=== PATIENT | male | born 1950 | race Caucasian/White ===

== ENCOUNTER → 2016-06-01 | Outpatient (CLI) | payer OTHER ==
--- NOTE | 2016-06-01 16:38 | MRI ---
EXAM DESCRIPTION: Brain MRI. CLINICAL HISTORY: Dizziness COMPARISON: None. TECHNIQUE: Multiplanar, multisequence MR images were acquired without IV contrast. FINDINGS: The midline structures on today's exam are unremarkable. Minimal periventricular white matter disease noted with a few T2 hyperintensities seen. Gradient sequences reveal no evidence of old intracranial hemorrhage. No intracranial mass effect, hydrocephalus, midline shift, hemorrhage, extra-axial fluid collection, abnormal vascular flow void, or restricted diffusion is seen. Calvarial signal is intact. Minimal bilateral maxillary sinus, sphenoid sinuses and ethmoid air cell mucosal thickening. Orbits and globes are unremarkable. IMPRESSION: Today's exam demonstrates only minimal age-appropriate periventricular white matter disease. Mucosal thickening within the paranasal sinuses which can be seen in setting of sinusitis, if the patient is symptoms support this finding. No acute findings on today's study. Electronically signed by: Peewee He MD 06/01/2016 16:37
== END | disposition home or self-care (01) ==
LOC: MRI 13:51
PROVIDERS: ATTEND Family Medicine
DX: R42 Dizziness and giddiness (principal)

== ENCOUNTER → 2017-07-24 | Outpatient (CLI) | payer OTHER | LOC: GMAJ 11:13 | PROVIDERS: ATTEND Family Medicine | DX: Z12.5 Encounter for screening for malignant neoplasm of prostate (principal) ==

== ENCOUNTER → 2018-01-29 | Outpatient (CLI) | payer OTHER ==
--- NOTE | 2018-01-29 13:39 | US ---
Procedure: US LOWER EXTREMITY ARTERIES BILATERAL Exam Date: 01/29/2018 Ordering Provider: ANGÉLICA RICHTER Clinical Indication: PVD Comparison: None Technique: Arterial duplex Doppler ultrasound was obtained over both lower extremities. This includes grayscale, spectral Doppler, and color Doppler. Carton Wrapper images recorded. FINDINGS: Right: Grayscale imaging demonstrates mild atherosclerotic plaque.. Waveforms are biphasic throughout. Peak systolic velocities (cm/sec) are as follows: DIRECTOR MARKET INTELLIGENCE: 91 Proximal SFA: 69 Mid SFA: 58 Distal SFA: 79 Popliteal: 52 Peroneal: 52 EVENTS ADMINISTRATIVE ASSISTANT: 46 Dorsalis pedis: 0 Left: Grayscale imaging demonstrates mild atherosclerotic plaque. Waveforms are triphasic in the common femoral and popliteal arteries and biphasic in the superficial femoral, peroneal and posterior tibial arteries. Peak systolic velocities (cm/sec) are as follows: DIRECTOR MARKET INTELLIGENCE: 92 Proximal SFA: 81 Mid SFA: 74 Distal SFA: 82 Popliteal: 52 Peroneal: 60 EVENTS ADMINISTRATIVE ASSISTANT: 73 Dorsalis pedis: 0 IMPRESSION: 1. There is no flow identified in the bilateral dorsalis pedis arteries. 2. Otherwise, no hemodynamically significant stenosis in either lower extremity. Electronically signed by: Harshad Ordonez MD 01/29/2018 1:37 PM CDT
== END ==
LOC: US 08:11
PROVIDERS: ATTEND Family Medicine
DX: I73.89 Other specified peripheral vascular diseases (principal); I70.211 Atherosclerosis of native arteries of extremities with intermittent claudication, right leg

== ENCOUNTER → 2019-01-27 | Outpatient (CLI) | payer OTHER | LOC: NM 08:28 | PROVIDERS: ATTEND Family Medicine | DX: I70.203 Unspecified atherosclerosis of native arteries of extremities, bilateral legs (principal) ==

== ENCOUNTER → 2020-03-09 | Outpatient (CLI) | payer OTHER, MEDICARE | LOC: GMAJ 10:43 | PROVIDERS: ATTEND Family Medicine | DX: Z12.5 Encounter for screening for malignant neoplasm of prostate (principal); I10 Essential (primary) hypertension; E78.2 Mixed hyperlipidemia ==

== ENCOUNTER 2020-06-05 10:35 | Emergency (ER) | payer MEDICARE, OTHER ==
--- NOTE | 2020-06-05 10:40 | ED.PDOC ---
History of Present Illness - General Stated Complaint: Cough, dyspnea, weakness Time Seen by Provider: 06/05/20 10:40 Additional Information: Patient seen in this emergency department 3 days ago with negative Covid test. - History of Present Illness Initial Comments: Patient complains of nonproductive cough, dyspnea, fever to 103 degrees, chills, weakness, loss of appetite for the last week. He was seen in this emergency de partment 3 days ago and had a negative rapid Covid test. He was given a prescription of azithromycin and Medrol Dosepak. Patient denies relief of symptoms. Timing/Duration: 1 week Severity: mild Improving Factors: nothing Worsening Factors: nothing Allergies/Adverse Reactions: Allergies NO KNOWN ALLERGY Allergy (Verified 06/05/20 11:11) Review of Systems - Review of Systems Constitutional: States: see HPI EENTM: States: other - Denies sore throat. Was told that he had a questionably positive strep test on last visit. Respiratory: States: see HPI, cough, short of breath Cardiology: States: chest pain - With coughing Gastrointestinal/Abdominal: States: no symptoms reported Genitourinary: States: no symptoms reported Musculoskeletal: States: no symptoms reported Skin: States: no symptoms reported Neurological: States: no symptoms reported Endocrine: States: no symptoms reported Hematologic/Lymphatic: States: no symptoms reported Family Medical History - Family History Mother Family History: Unknown Living Status: Physical Exam - Physical Exam General Appearance: Alert, Comfortable, Other - Patient was supine without obvious distress when first seen. 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 He remains comfortable in a supine position. SaO2 91 to 94% at time of last examination. 06/05/20 12:49 Medical decision makin-year-old male with a history of COPD who presents with symptoms suggestive of COVID-19 infection. Patient does not have any dyspnea wheezing or significant hypoxemia here in the emergency department. To COVID-19 test in the last 3 days have been negative. Patient does not appear to have an acute exacerbation of his COPD. There is no pneumonia or respiratory distress. Symptoms reported are most likely due to COVID-19 infection with false negative testing. Patient is suitable for outpatient management. - Results/Orders Results/Orders: Single view chest x-ray: Chronic changes noted but no acute changes or in filtrates. Rapid nasal swab Covid testing negative. Departure - Departure Clinical Impression: Dyspnea, COPD (chronic obstructive pulmonary disease), Suspected COVID-19 virus infection Time of Disposition: 11:33 Disposition: Discharge to Home or Self Care Condition: Good Departure Forms: ED Discharge - Pt. Copy, Patient Portal Self Enrollment Instructions: Chronic Obstructive Pulmonary Disease (COPD) (DC), Coronavirus Disease 2019 (COVID-19) (DC) Diet: resume usual diet Referrals: Marco Shields MD [Primary Care Provider] - 1-2 Weeks Additional Instructions: You have suspected COVID-19. If you develop acutely worsening shortness of breath return to the emergency department. Even though your tests have been negative so far you should consider yourself is positive for Covid based on your symptoms. You should isolate yourself from all others for at least 4 days until all of your current symptoms have resolved. Continue your current medications. Use [id number] Robitussin-DM for cough.
--- NOTE | 2020-06-05 11:08 | RAD ---
EXAM: XR Chest, 1 View CLINICAL HISTORY: Cough and dyspnea TECHNIQUE: Frontal view of the chest. COMPARISON: No relevant prior studies available. FINDINGS: Lungs: No consolidation. Symmetrical vascular pattern. Pleural space: No pneumothorax. No pleural effusion. Heart: Large cardiac shadow. Mediastinum: No abnormality noted. Bones/joints: No osseous destruction or sclerosis noted. IMPRESSION: Chronic changes as above. No acute disease. Electronically signed by: Janine Ojeda MD 06/05/2020 11:06 AM [facility]
[2020-06-05 11:54] VITALS: BP 127/68; TEMP 99.1; O2SAT 91
== END 2020-06-05 11:45 | disposition home or self-care (01) ==
LOC: ER 10:35
DX: J44.9 Chronic obstructive pulmonary disease, unspecified (principal); Z20.822 Contact with and (suspected) exposure to COVID-19

== ENCOUNTER 2020-06-07 17:03 | Emergency (ER) | payer MEDICARE, OTHER ==
--- NOTE | 2020-06-07 17:42 | ED.PDOC ---
History of Present Illness - General Chief Complaint: General Stated Complaint: General weakness, dizzy Time Seen by Provider: 06/07/20 17:06 Source: patient Exam Limitations: no limitations Additional Information: The patient states that he was sent by his PCP to come get a Ct Angio Chest. States that he has been told he is Covid Negative . He had lab work done at his primary care physician's office today and his D-dimer was elevated to descending to the ED to come get a CT angio.He is currently on antibiotics started by his primary care is for pneumonia - History of Present Illness Timing/Duration: unsure Severity: moderate Improving Factors: nothing Worsening Factors: nothing Associated Symptoms: denies symptoms, cough, shortness of breath Allergies/Adverse Reactions: Allergies NO KNOWN ALLERGY Allergy (Verified 06/07/20 17:15) Review of Systems - Review of Systems Constitutional: Denies: chills, fever EENTM: Denies: blurred vision, tearing, nose pain, nose congestion Respiratory: States: cough, short of breath Cardiology: Denies: chest pain, palpitations, syncope Gastrointestinal/Abdominal: Denies: abdominal pain, diarrhea, nausea, vomiting Genitourinary: Denies: discharge, frequency, hematuria Musculoskeletal: Denies: back pain, gout, muscle pain, muscle stiffness, other Skin: Denies: change in color, dryness, lesions, rash, other Neurological: Denies: depressed, emotional problems, headache, paresthesia, pre- existing deficit, seizure Endocrine: Denies: flushing, intolerance to cold, intolerance to heat, increased urine, unexplained weight gain, unexplained weight loss Hematologic/Lymphatic: Denies: anemia, easy bleeding, easy bruising Past Medical History (General) - Patient Medical History Hx Stroke: No Hx of COPD: Yes Hx Cardiac Disorders: No Hx Congestive Heart Failure: Yes Hx Hypertension: Yes Hx Diabetes: No Hx Gastroesophageal Reflux: No Hx Cancer: No - Vaccination History Hx Influenza Vaccination: Yes Hx Pneumococcal Vaccination: Yes - Social History Hx Tobacco Use: Yes Hx Chewing Tobacco Use: Yes Hx Alcohol Use: Yes Hx Substance Use: No Hx Substance Use Treatment: No Hx Depression: No - Female History Patient : No Family Medical History - Family History Mother Family History: Unknown Living Status: Physical Exam - Physical Exam General Appearance: Alert Eye Exam: bilateral normal Ears, Nose, Throat: hearing grossly normal, normal ENT inspection Neck: non-tender, full range of motion, supple, normal inspection Respiratory: chest non-tender, lungs clear, normal breath sounds, no respiratory distress, no accessory muscle use Cardiovascular/Chest: normal peripheral pulses, regular rate, rhythm, no edema, no gallop, no JVD Peripheral Pulses: radial,right: 2+, radial,left: 2+ Gastrointestinal/Abdominal: normal bowel sounds, non tender, soft, no organomegaly, no pulsatile mass Rectal Exam: normal rectal tone Back Exam: normal inspection, no CVA tenderness, no vertebral tenderness Extremity: normal range of motion, non-tender, normal inspection 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 Review of lab work from the My care physician's office on elevated D-dimer. The patient states that he has pneumonia and is currently being treated for it. His Covid is negative. CT angios negative. CT does show pneumonia the patient discharged home to continue his antibiotic course for pneumonia. Patient advised on return precautions and follow-up instructions he verbalized understanding Patient's oxygen saturations are 95 and above throughout his ED stay. No tachypnea. He does state that he has shortness of breath but states that he is chronically short of breath and this is not any different from shortness of breath from COPD. EXAM DESCRIPTION: CTA Chest CLINICAL HISTORY: 70 years Male elevated ddimer COMPARISON: None TECHNIQUE: Images were obtained in axial, sagittal, and coronal planes. Intravenous contrast was administered. 3-D MIP imaging was performed. This exam was performed according to our departmental dose- optimization program which includes use of Automated Exposure Control, adjustmen t of the mA and/or kV according to patient size and/or use of iterative reconstruction technique. FINDINGS: No filling defects pulmonary arteries bilaterally. No aortic dissection or dilatation. No pericardial effusion. Enlarged heart. Trace bilateral pleural effusions. 2.3 cm right hilar lymph node. 2.1 cm left hilar lymph node. 1.7 cm lymph node aortopulmonary window. Extensive ill-defined airspace opacities lung [place] ri[place] bilaterally with predominant involvement lower lobes. No lung parenchymal infiltrates seen. No acute osseous abnormality. Decreased attenuation involving the liver likely fatty change. Spleen is enlarged measuring 13.6 cm in greatest dimension. IMPRESSION: No evidence for pulmonary embolus. No aortic dissection or dilatation. Extensive bilateral infiltrates. The findings are consistent with but not specific for atypical pneumonia including viral infection. Bilateral hilar and mediastinal adenopathy. Enlarged heart. Fatty change involving the liver. Enlarged spleen. 06/07/20 18:06 06/08/20 03:48 06/08/20 03:49 Departure - Departure Clinical Impression: Shortness of breath, Pneumonia Disposition: Discharge to Home or Self Care Condition: Fair Departure Forms: ED Discharge - Pt. Copy, Patient Portal Self Enrollment Instructions: Shortness of Breath (Dyspnea) (DC) Referrals: Marco Shields MD [Primary Care Provider] - 1-2 Weeks Additional Instructions: Please complete your Course of antibiotics and steroid prescribed by her primary care physician. Return to emergency department medially if symptoms worsen Ensure to follow-up with primary care physician 1 to 2 days next
--- NOTE | 2020-06-07 17:59 | CT ---
EXAM DESCRIPTION: CTA Chest CLINICAL HISTORY: 70 years Male elevated ddimer COMPARISON: None TECHNIQUE: Images were obtained in axial, sagittal, and coronal planes. Intravenous contrast was administered. 3-D MIP imaging was performed. This exam was performed according to our departmental dose-optimization program which includes use of Automated Exposure Control, adjustment of the mA and/or kV according to patient size and/or use of iterative reconstruction technique. FINDINGS: No filling defects pulmonary arteries bilaterally. No aortic dissection or dilatation. No pericardial effusion. Enlarged heart. Trace bilateral pleural effusions. 2.3 cm right hilar lymph node. 2.1 cm left hilar lymph node. 1.7 cm lymph node aortopulmonary window. Extensive ill-defined airspace opacities lung [place] ri[place] bilaterally with predominant involvement lower lobes. No lung parenchymal infiltrates seen. No acute osseous abnormality. Decreased attenuation involving the liver likely fatty change. Spleen is enlarged measuring 13.6 cm in greatest dimension. IMPRESSION: No evidence for pulmonary embolus. No aortic dissection or dilatation. Extensive bilateral infiltrates. The findings are consistent with but not specific for atypical pneumonia including viral infection. Bilateral hilar and mediastinal adenopathy. Enlarged heart. Fatty change involving the liver. Enlarged spleen. Electronically signed by: Sydnee Salvador MD 06/07/2020 5:58 PM [employer] [facility]
[2020-06-07 18:25] VITALS: BP 123/63; TEMP 98.7; O2SAT 94
== END 2020-06-07 18:12 | disposition home or self-care (01) ==
LOC: ER 17:03
DX: J18.9 Pneumonia, unspecified organism (principal); R42 Dizziness and giddiness; I11.0 Hypertensive heart disease with heart failure; I50.9 Heart failure, unspecified; Z20.822 Contact with and (suspected) exposure to COVID-19